=== PATIENT | female | born 1995 | race Caucasian/White ===

== ENCOUNTER 2019-01-23 09:16 | Emergency (ER) | payer OTHER ==
[~2019-01-23] VITALS: Ht 162.6 cm; Wt 87.5 kg
[2019-01-23] MEDS ORDERED: ZOFRAN4 MG PO (10:12)
== END 2019-01-23 12:37 | disposition home or self-care (01) ==
LOC: ED 09:16
DX: R10.13 Epigastric pain (principal); R11.0 Nausea
CPT/HCPCS: 80053; 83690; 84702; 84703; 85025; 96374; 96375; 99284-25; J2405; J2550